=== PATIENT | male | born 1990 | race Hispanic/Latino ===

== ENCOUNTER 2019-07-06 13:38 | Emergency (ER) | payer SELFPAY ==
[2019-07-06] MEDS ORDERED: LIDOCAINE 1% MPF 5 ML VIAL ONE (14:16)
--- NOTE | 2019-07-06 15:11 | EDPHYS ---
Physician Documentation [facility] Name: Hector Tillman Age: 29 yrs Sex: Male : 1990 Arrival Date: 07/06/2019 Time: 13:41 Bed 28 Private MD: ED Physician Rosales Kiran HPI: 07/06 14:10 This 29 yrs old Male presents to ER via Ambulatory with complaints of Finger cp Problem. 14:10 The patient or guardian reports pain, swelling, tenderness. The complaints affect the cp distal phalanx right fourth finger. Context: resulted from an unknown cause. 14:10 Onset: The symptoms/episode began/occurred gradually, and became worse today. cp Associated signs and symptoms: Pertinent negatives: cyanosis distally, decreased sensation distally, fever. Historical: - Allergies: 14:42 No Known Allergies; rv - Home Meds: 14:42 None [Active]; rv - PMHx: 14:42 None; rv - PSHx: 14:42 None; rv - Immunization history:: Adult Immunizations up to date. - Social history:: Smoking status: Patient uses tobacco products, denies chronic smoking, but will smoke occasionally. - Ebola Screening: : Patient negative for fever greater than or equal to 101.5 degrees Fahrenheit, and additional compatible Ebola Virus Disease symptoms Patient denies exposure to infectious person Patient denies travel to an Ebola-affected area in the 21 days before illness onset. ROS: 14:15 Skin: Positive for abscess, of the distal phalanx right fourth finger. cp 14:15 Constitutional: Negative for body aches, chills, fever, poor PO intake. cp 14:15 All other systems are negative. Exam: 14:20 Constitutional: The patient appears in no acute distress, alert, awake, non-toxic, well cp developed, well nourished. 14:20 Head/Face: Normocephalic, atraumatic. cp 14:20 Skin: abscess, that is small, of the along the nail right fourth finger, with induration. 14:20 Neuro: Motor: is normal, Sensation: is normal. Vital Signs: 14:02 BP 143 / 97 LA Sitting (auto/lg); Pulse 93; Resp 18; Temp 98.2(O); Pulse Ox 99% on R/A; jp3 Weight 102.06 kg (R); Height 5 ft. 10 in. (177.80 cm) (R); Pain 9/10; 15:19 BP 138 / 88; Pulse 89; Resp 15; Temp 98; Pulse Ox 99% on R/A; rv 14:02 Body Mass Index 32.28 (102.06 kg, 177.80 cm) jp3 Procedures: 15:06 I \T\ D: Incision and drainage was performed for an abscess of the distal phalanx right cp fourth finger Prepped with Betadine, Anesthetized with digital block using 5 ccs of mixture 1% lidocaine w/o epi and 0.5% bupivacaine w/o epi. Incised with #11 blade. Drained small amount purulent fluid. Dressing: sterile 4x4 gauze, the patient tolerated the procedure well. MDM: 14:04 Patient medically screened. cp 14:15 Differential diagnosis: abscess, cellulitis. cp 15:08 Data reviewed: vital signs, nurses notes, and as a result, I will discharge patient. cp 15:10 Counseling: I had a detailed discussion with the patient and/or guardian regarding: the cp historical points, exam findings, and any diagnostic results supporting the discharge/admit diagnosis, to return to the emergency department if symptoms worsen or persist or if there are any questions or concerns that arise at home. 15:10 Response to treatment: the patient's symptoms have markedly improved after treatment, cp and as a result, I will discharge patient. 07/06 14:05 Order name: I\T\D Setup; Complete Time: 14:12 cp 07/06 15:04 Order name: Wound dressing; Complete Time: 15:06 cp Administered Medications: 15:00 Drug: Lidocaine (1 %) 5 mg {Note: given by Jose Alfredo Page.} Route: Infiltration; rv 15:19 Follow up: Response: No adverse reaction rv 15:00 Drug: Marcaine (0.5 %) 5 ml {Note: given by Jose Alfredo Page.} Volume: 10 ml; Route: rv Infiltration; 15:19 Follow up: Response: No adverse reaction rv Disposition: 15:30 Chart complete. cp 07/07 07:05 Co-signature as Attending Physician, Rosales Kiran MD I agree with the assessment and kdr plan of care. Disposition: 07/06/19 15:10 Discharged to Home. Impression: Cutaneous abscess of right upper limb - distal phalanx right fourth finger. - Condition is Stable. - Discharge Instructions: Incision and Drainage, Paronychia. - Prescriptions for Ibuprofen 800 mg Oral Tablet - take 1 tablet by ORAL route every 8 hours As needed take with food; 30 tablet. Doxycycline Hyclate 100 mg Oral Tablet - take 1 tablet by ORAL route every 12 hours; 20 tablet. - Medication Reconciliation Form, Thank You Letter, Antibiotic Education, Prescription Opioid Use form. - Follow up: Emergency Department; When: 2 - 3 days; Reason: Worsening of condition. - Problem is new. - Symptoms have improved. Signatures: Rosales Kiran MD MD kdr Jose Alfredo Newman PA PA cp Raz Logan RN RN rv Corrections: (The following items were deleted from the chart) 07/06 15:20 15:10 07/06/2019 15:10 Discharged to Home. Impression: Cutaneous abscess of right upper rv limb - distal phalanx right fourth finger. Condition is Stable. Forms are Medication Reconciliation Form, Thank You Letter, Antibiotic Education, Prescription Opioid Use. Follow up: Emergency Department; When: 2 - 3 days; Reason: Worsening of condition. Problem is new. Symptoms have improved. cp
--- NOTE | 2019-07-06 15:11 | ER ---
Nurse's Notes [facility] Name: Hector Tillman Age: 29 yrs Sex: Male : 1990 Arrival Date: 07/06/2019 Time: 13:41 Bed 28 Private MD: Diagnosis: Cutaneous abscess of right upper limb-distal phalanx right fourth finger Presentation: 07/06 14:40 Transition of care: patient was not received from another setting of care. Onset of rv symptoms was July 06, 2019 at 08:00. Risk Assessment: Do you want to hurt yourself or someone else? Patient reports no desire to harm self or others. Initial Sepsis Screen: Does the patient meet any 2 criteria? No. Patient's initial sepsis screen is negative. Does the patient have a suspected source of infection? No. Patient's initial sepsis screen is negative. Care prior to arrival: None. 14:40 Acuity: ABIMAEL 3 rv 14:40 Method Of Arrival: Ambulatory rv 15:05 Presenting complaint: Patient states: abscess right hand 4th digit. rv Historical: - Allergies: 14:42 No Known Allergies; rv - Home Meds: 14:42 None [Active]; rv - PMHx: 14:42 None; rv - PSHx: 14:42 None; rv - Immunization history:: Adult Immunizations up to date. - Social history:: Smoking status: Patient uses tobacco products, denies chronic smoking, but will smoke occasionally. - Ebola Screening: : Patient negative for fever greater than or equal to 101.5 degrees Fahrenheit, and additional compatible Ebola Virus Disease symptoms Patient denies exposure to infectious person Patient denies travel to an Ebola-affected area in the 21 days before illness onset. Screenin:40 Abuse screen: Denies threats or abuse. Denies injuries from another. Nutritional rv screening: No deficits noted. Tuberculosis screening: No symptoms or risk factors identified. Fall Risk None identified. Assessment: 14:39 General: Appears in no apparent distress. comfortable, Behavior is calm, cooperative. rv Pain: Complains of pain in right hand. Neuro: Level of Consciousness is awake, alert, obeys commands, Oriented to person, place, time, situation. Cardiovascular: Patient's skin is warm and dry. Respiratory: Airway is patent. GI: No signs and/or symptoms were reported involving the gastrointestinal system. : No signs and/or symptoms were reported regarding the genitourinary system. EENT: No signs and/or symptoms were reported regarding the EENT system. Derm: Abscess located on dorsal aspect of distal phalanx of right ring finger and dorsal aspect of middle phalanx of right ring finger. Musculoskeletal: No signs and/or symptoms reported regarding the musculoskeletal system. Vital Signs: 14:02 BP 143 / 97 LA Sitting (auto/lg); Pulse 93; Resp 18; Temp 98.2(O); Pulse Ox 99% on R/A; jp3 Weight 102.06 kg (R); Height 5 ft. 10 in. (177.80 cm) (R); Pain 9/10; 15:19 BP 138 / 88; Pulse 89; Resp 15; Temp 98; Pulse Ox 99% on R/A; rv 14:02 Body Mass Index 32.28 (102.06 kg, 177.80 cm) jp3 ED Course: 13:41 Patient arrived in ED. rg4 13:56 Jose Alfredo Newman PA is PHCP. cp 13:56 Rosales Kiran MD is Attending Physician. cp 14:03 Patient has correct armband on for positive identification. Bed in low position. Call jp3 light in reach. Verbal reassurance given. Pulse ox on. NIBP on. 14:03 Patient maintains SpO2 saturation greater than 95% on room air. jp3 14:12 Raz Logan, ADRIAN is Primary Nurse. rv 14:41 Triage completed. rv 14:42 Patient placed in the treatment room, on a stretcher, on pulse oximetry, Patient rv notified of wait time. 14:43 Assist provider with I \T\ D: of an abscess on right hand, 2nd digit Set up I\T\D tray. rv Performed by Jose Alfredo IRVING Dressing with 4X4s, Patient tolerated well. Assist provider with nerve block (digital) of dorsal aspect of proximal phalanx of right ring finger Set up for procedure. Performed by Jose Alfredo IRVING Patient tolerated well. 15:20 Patient did not have IV access during this emergency room visit. rv Administered Medications: 15:00 Drug: Lidocaine (1 %) 5 mg {Note: given by Jose Alfredo Newman.} Route: Infiltration; rv 15:19 Follow up: Response: No adverse reaction rv 15:00 Drug: Marcaine (0.5 %) 5 ml {Note: given by Jose Alfredo Newman.} Volume: 10 ml; Route: rv Infiltration; 15:19 Follow up: Response: No adverse reaction rv Outcome: 15:10 Discharge ordered by . cp 15:20 Discharged to home ambulatory. rv 15:20 Condition: good 15:20 Discharge instructions given to patient, Instructed on discharge instructions, follow up and referral plans. medication usage, wound care, Demonstrated understanding of instructions, follow-up care, medications, wound care, Prescriptions given X 2. 15:20 Patient left the ED. rv Signatures: Jose Alfredo Newman PA PA cp Garcia, Rubi rg4 Raz Logan RN RN rv Isidro García jp3 Corrections: (The following items were deleted from the chart) 15: 14:40 Presenting complaint: Patient states: abcess on right hand 2nd digit rv rv
[2019-07-06 15:28] VITALS: O2SAT 99
[2019-07-06 15:29] VITALS: BP 138/88; TEMP 98
== END 2019-07-06 15:20 | disposition home or self-care (01) ==
LOC: ER 13:38
PROC: 0H9FXZZ Drainage of Right Hand Skin, External Approach (ICD-10-PCS; principal; 2019-07-06)
DX: L02.511 Cutaneous abscess of right hand (principal); Z72.0 Tobacco use
CPT/HCPCS: 99284

== ENCOUNTER 2020-01-10 09:45 | Emergency (ER) | payer SELFPAY ==
[2020-01-10] MEDS ORDERED: TETRACAINE HCL 0.5% 4ML OPTH ONE (10:18)
[2020-01-10] MEDS ORDERED: FLUORESCEIN SODIUM 1 MG/WRAP ONE (10:18)
--- NOTE | 2020-01-10 10:29 | EDPHYS ---
Physician Documentation [facility] Name: Hector Tillman Age: 29 yrs Sex: Male : 1990 Arrival Date: 01/10/2020 Time: 09:49 Bed 23 Private MD: ED Physician Georgi Hess HPI: 01/09 10:40 This 29 yrs old Male presents to ER via Ambulatory with complaints of Redness snw of Eye. 10:40 The patient is experiencing redness, tearing, to the left eye, caused by an unknown snw mechanism. Onset: The symptoms/episode began/occurred suddenly, 2 day(s) ago. Duration: the symptoms are continuous. Associated signs and symptoms: Pertinent positives: None. Patient wears soft contacts. Severity of symptoms: At their worst the symptoms were moderate in the emergency department the symptoms are unchanged. It is unknown whether or not the patient has had similar symptoms in the past. It is unknown whether or not the patient has recently seen a physician. Historical: - Allergies: 10:03 No Known Allergies; ss - Home Meds: 10:03 None [Active]; ss - PMHx: 10:03 None; ss - PSHx: 10:03 None; ss - Immunization history:: Adult Immunizations up to date. - Social history:: Smoking status: Patient denies any tobacco usage or history of. ROS: 10:38 Constitutional: Negative for fever, chills, and weight loss, ENT: Negative for injury, snw pain, and discharge, Neck: Negative for injury, pain, and swelling, Cardiovascular: Negative for chest pain, palpitations, and edema, Respiratory: Negative for shortness of breath, cough, wheezing, and pleuritic chest pain, Abdomen/GI: Negative for abdominal pain, nausea, vomiting, diarrhea, and constipation, Back: Negative for injury and pain, : Negative for injury, bleeding, discharge, and swelling, MS/Extremity: Negative for injury and deformity, Skin: Negative for injury, rash, and discoloration, Neuro: Negative for headache, weakness, numbness, tingling, and seizure, Psych: Negative for depression, anxiety, suicide ideation, homicidal ideation, and hallucinations. 10:38 Eyes: Positive for redness, of the outer aspect of conjuctiva of left eye, iris of left eye and inner aspect of conjunctiva of left eye. Exam: 10:37 Constitutional: This is a well developed, well nourished patient who is awake, alert, snw and in no acute distress. Head/Face: Normocephalic, atraumatic. ENT: Nares patent. No nasal discharge, no septal abnormalities noted. Tympanic membranes are normal and external auditory canals are clear. Oropharynx with no redness, swelling, or masses, exudates, or evidence of obstruction, uvula midline. Mucous membranes moist. Neck: Trachea midline, no thyromegaly or masses palpated, and no cervical lymphadenopathy. Supple, full range of motion without nuchal rigidity, or vertebral point tenderness. No Meningismus. Chest/axilla: Normal chest wall appearance and motion. Nontender with no deformity. No lesions are appreciated. Cardiovascular: Regular rate and rhythm with a normal S1 and S2. No gallops, murmurs, or rubs. Normal PMI, no JVD. No pulse deficits. Respiratory: Lungs have equal breath sounds bilaterally, clear to auscultation and percussion. No rales, rhonchi or wheezes noted. No increased work of breathing, no retractions or nasal flaring. Abdomen/GI: Soft, non-tender, with normal bowel sounds. No distension or tympany. No guarding or rebound. No evidence of tenderness throughout. Back: No spinal tenderness. No costovertebral tenderness. Full range of motion. Skin: Warm, dry with normal turgor. Normal color with no rashes, no lesions, and no evidence of cellulitis. MS/ Extremity: Pulses equal, no cyanosis. Neurovascular intact. Full, normal range of motion. Neuro: Awake and alert, GCS 15, oriented to person, place, time, and situation. Cranial nerves II-XII grossly intact. Motor strength 5/5 in all extremities. Sensory grossly intact. Cerebellar exam normal. Normal gait. Psych: Awake, alert, with orientation to person, place and time. Behavior, mood, and affect are within normal limits. 10:37 Eyes: Periorbital structures: appear normal, Pupils: no acute changes, Extraocular movements: no acute changes, Conjunctiva: injected, in the left eye, Corneas: abrasion, that is small, on the left, over pupil, a fluorescein strip employed to appreciate the findings, Anterior chamber: normal, Lids and lashes: appear normal, on the right. Vital Signs: 10:01 BP 145 / 94; Pulse 98; Resp 16; Temp 97.6(TE); Pulse Ox 97% on R/A; Weight 102.06 kg; ss Height 5 ft. 8 in. (172.72 cm); Pain 7/10; 10:01 Body Mass Index 34.21 (102.06 kg, 172.72 cm) ss Visual Acuity: 10:49 Left Eye Visual acuity 20/30, ; Right Eye Visual acuity 20/10, ; Both Eyes Visual ss acuity 20/20; With Lenses; MDM: 10:10 Patient medically screened. snw 10:34 Data reviewed: vital signs, nurses notes. Data interpreted: Pulse oximetry: on room air snw is 97 %. Interpretation: normal. Counseling: I had a detailed discussion with the patient and/or guardian regarding: the historical points, exam findings, and any diagnostic results supporting the discharge/admit diagnosis, the presence of at least one elevated blood pressure reading (>120/80) during this emergency department visit, the need for outpatient follow up, for definitive care, to return to the emergency department if symptoms worsen or persist or if there are any questions or concerns that arise at home. 01/09 10:04 Order name: Eye Tray; Complete Time: 10:15 snw 01/09 10:04 Order name: Visual Acuity; Complete Time: 10:48 snw Administered Medications: 10:15 Drug: Fluorescein Strip 1 strip {Note: administered by Kristal Guillory NP.} Route: ss Ophthalmic; Site: left eye; 10:15 Drug: Tetracaine Drops 0.5 % 1 drops Route: Ophthalmic; Site: left eye; Disposition: 10:53 Co-signature as Attending Physician, Georgi Hess MD. rn Disposition: 01/10/20 10:26 Discharged to Home. Impression: Injury of conjunctiva and corneal abrasion without foreign body, left eye. - Condition is Stable. - Discharge Instructions: Corneal Abrasion, Bacterial Conjunctivitis, Hypertension, Form - Blood Pressure Record Sheet, Form - Return To Work. - Prescriptions for Vigamox 0.5 % Ophthalmic Drops - instill 1 drop by OPHTHALMIC route every 8 hours for 7 days; 5 milliliter. Diclofenac Sodium 75 mg Oral Tablet Sustained Release - take 1 tablet by ORAL route 2 times per day; 30 tablet. - Medication Reconciliation Form, Thank You Letter, Antibiotic Education, Prescription Opioid Use, Work release form, Family Work Release form. - Follow up: Emergency Department; When: As needed; Reason: Worsening of condition. Follow up: Private Physician; When: 2 - 3 days; Reason: Recheck today's complaints, Continuance of care, Re-evaluation by your physician. Signatures: Kristal Guillory, TAR POT MAN-C TAR POT MAN-Csnw Georgi Hess MD MD rn Smirch, Shelby, RN RN ss Corrections: (The following items were deleted from the chart) 10:52 10:26 01/10/2020 10:26 Discharged to Home. Impression: Injury of conjunctiva and ss corneal abrasion without foreign body, left eye. Condition is Stable. Forms are Medication Reconciliation Form, Thank You Letter, Antibiotic Education, Prescription Opioid Use. Follow up: Emergency Department; When: As needed; Reason: Worsening of condition. Follow up: Private Physician; When: 2 - 3 days; Reason: Recheck today's complaints, Continuance of care, Re-evaluation by your physician. snw
--- NOTE | 2020-01-10 10:29 | ER ---
Nurse's Notes [facility] Name: Hector Tillman Age: 29 yrs Sex: Male : 1990 Arrival Date: 01/10/2020 Time: 09:49 Bed 23 Private MD: Diagnosis: Injury of conjunctiva and corneal abrasion without foreign body, left eye Presentation: 01/09 10:01 Chief complaint: Patient states: redness to L eye x3 days. Denies purulent drainage. ss "feels as if something is in my eye.". Coronavirus screen: Patient denies fever greater than 100.4F, cough, shortness of breath, or difficulty breathing. Proceed with normal triage process. Ebola Screen: Patient denies exposure to infectious person. Patient denies travel to an Ebola-affected area in the 21 days before illness onset. Initial Sepsis Screen: Does the patient meet any 2 criteria? No. Patient's initial sepsis screen is negative. Does the patient have a suspected source of infection? No. Patient's initial sepsis screen is negative. Risk Assessment: Do you want to hurt yourself or someone else? Patient reports no desire to harm self or others. 10:01 Method Of Arrival: Ambulatory ss 10:01 Acuity: ABIMAEL 4 ss Historical: - Allergies: 10:03 No Known Allergies; ss - Home Meds: 10:03 None [Active]; ss - PMHx: 10:03 None; ss - PSHx: 10:03 None; ss - Immunization history:: Adult Immunizations up to date. - Social history:: Smoking status: Patient denies any tobacco usage or history of. Screenin:53 Abuse screen: Denies threats or abuse. Denies injuries from another. Nutritional ss screening: No deficits noted. Tuberculosis screening: Never had TB. Fall Risk None identified. Assessment: 09:53 General: Appears uncomfortable, Behavior is calm, cooperative, Denies fever, feeling ss ill, fatigue, chills. Pain: Complains of pain in inner aspect of conjunctiva of left eye and outer aspect of conjuctiva of left eye Pain currently is 5 out of 10 on a pain scale. Quality of pain is described as burning, tender, Pain began 2-3 days ago. Is continuous. Neuro: Level of Consciousness is awake, alert, obeys commands, Oriented to person, place, time, situation. Respiratory: Airway is patent Respiratory effort is even, unlabored. EENT: Throat is clear. Derm: Skin is pink, warm \\T\\ dry. normal. Musculoskeletal: Circulation, motion, and sensation intact. Range of motion: intact in all extremities, Swelling absent. Vital Signs: 10:01 BP 145 / 94; Pulse 98; Resp 16; Temp 97.6(TE); Pulse Ox 97% on R/A; Weight 102.06 kg; ss Height 5 ft. 8 in. (172.72 cm); Pain 7/10; 10:01 Body Mass Index 34.21 (102.06 kg, 172.72 cm) ss Visual Acuity: 10:49 Left Eye Visual acuity 20/30, ; Right Eye Visual acuity 20/10, ; Both Eyes Visual ss acuity 20/20; With Lenses; ED Course: 09:49 Patient arrived in ED. mr 09:53 Patient has correct armband on for positive identification. ss 10:01 Kristal Guillory FNP-C is [facility]. snw 10:01 Georgi Hess MD is Attending Physician. snw 10:01 Ángela Devine, ADRIAN is Primary Nurse. ss 10:03 Triage completed. ss 10:03 Arm band placed on right wrist. ss 10:51 No provider procedures requiring assistance completed. Patient did not have IV access ss during this emergency room visit. Administered Medications: 10:15 Drug: Fluorescein Strip 1 strip {Note: administered by Kristal Guillory NP.} Route: ss Ophthalmic; Site: left eye; 10:15 Drug: Tetracaine Drops 0.5 % 1 drops Route: Ophthalmic; Site: left eye; ss Outcome: 10:26 Discharge ordered by . snw 10:51 Discharged to home ambulatory. ss 10:51 Condition: good 10:51 Discharge instructions given to patient, Instructed on discharge instructions, follow up and referral plans. medication usage, Demonstrated understanding of instructions, follow-up care, medications, Prescriptions given X 2. 10:52 Patient left the ED. ss Signatures: Kristal Guillory FNP-C FNP-Csnw Fany Evans mr Ángela Devine, RN RN ss
[2020-01-10 11:01] VITALS: BP 145/94; TEMP 97.6; O2SAT 97
== END 2020-01-10 10:52 | disposition home or self-care (01) ==
LOC: ER 09:45
DX: S05.02XA Injury of conjunctiva and corneal abrasion without foreign body, left eye, initial encounter (principal)
CPT/HCPCS: 99283

== ENCOUNTER 2020-02-29 13:18 | Emergency (ER) | payer SELFPAY ==
--- NOTE | 2020-02-29 13:54 | ER ---
Nurse's Notes [facility] Name: Hector Tillman Age: 29 yrs Sex: Male : 1990 Arrival Date: 02/29/2020 Time: 13:22 Bed 18 Private MD: Diagnosis: Unspecified abdominal pain Presentation: 02/28 13:26 Chief complaint: Patient states: Pt reports abd discomfort and diarrhea that started ss yesterday. Pt reports he feels better today and needs to be cleared to go back to work tomorrow. Coronavirus screen: Proceed with normal triage. Patient denies a cough. Patient denies shortness of breath or difficulty breathing. Patient denies measured and/or subjective temperature greater than 100.4F prior to today's visit. Patient denies travel on a cruise ship or to a country the [facility] currently lists as an affected area. Patient denies contact with known and/or suspected case of COVID-19. Ebola Screen: Patient denies exposure to infectious person. Patient denies travel to an Ebola-affected area in the 21 days before illness onset. Initial Sepsis Screen: Does the patient meet any 2 criteria? No. Patient's initial sepsis screen is negative. Does the patient have a suspected source of infection? No. Patient's initial sepsis screen is negative. Risk Assessment: Do you want to hurt yourself or someone else? Patient reports no desire to harm self or others. Onset of symptoms was February 28, 2020. 13:26 Method Of Arrival: Ambulatory ss 13:26 Acuity: ABIMAEL 4 ss Historical: - Allergies: 13:29 No Known Allergies; ss - Home Meds: 13:29 None [Active]; ss - PMHx: 13:29 None; ss - PSHx: 13:29 None; ss - Immunization history:: Adult Immunizations up to date. - Social history:: Smoking status: Patient/guardian denies using tobacco, but has a distant history of tobacco abuse, Patient/guardian denies using alcohol, street drugs, The patient lives with family. - Family history:: not pertinent. Screenin:08 Abuse screen: Denies threats or abuse. Nutritional screening: No deficits noted. Tuberculosis screening: No symptoms or risk factors identified. Fall Risk None identified. Assessment: 13:55 General: Appears in no apparent distress. Behavior is calm, cooperative. Pain: Complains of pain in abdomen. Neuro: Level of Consciousness is awake, alert, Oriented to person, place, time, situation. Cardiovascular: Heart tones S1 S2 present Capillary refill < 3 seconds Patient's skin is warm and dry. Respiratory: Airway is patent Respiratory effort is even, unlabored, Respiratory pattern is regular, symmetrical. GI: Bowel sounds present X 4 quads. Abd is soft and non tender Reports diarrhea, nausea. : No signs and/or symptoms were reported regarding the genitourinary system. EENT: No signs and/or symptoms were reported regarding the EENT system. Derm: No signs and/or symptoms reported regarding the dermatologic system. Vital Signs: 13:26 BP 127 / 61; Pulse 98; Resp 15; Temp 98.7(TE); Pulse Ox 98% on R/A; Weight 97.52 kg; ss Height 5 ft. 10 in. (177.80 cm); Pain 0/10; 13:26 Body Mass Index 30.85 (97.52 kg, 177.80 cm) ED Course: 13:22 Patient arrived in ED. mr 13:28 Triage completed. 13:29 Arm band placed on right wrist. 13:38 Zhanna Johnson MD is Attending Physician. [facility] 13:57 Glenny Zepeda, RN is Primary Nurse. 14:09 No provider procedures requiring assistance completed. Patient did not have IV access during this emergency room visit. 14:10 Patient has correct armband on for positive identification. Bed in low position. Call light in reach. Administered Medications: No medications were administered Outcome: 13:54 Discharge ordered by . [facility] 14:09 Discharged to home ambulatory. 14:09 Condition: good 14:09 Discharge instructions given to patient, Instructed on discharge instructions, follow up and referral plans. medication usage, Demonstrated understanding of instructions, follow-up care, medications, Prescriptions given X 2. 14:10 Patient left the ED. Signatures: Fany Evans NilsonÁngela RN RN Zhanna Johnson MD MD ma2 Harris, Amy RN RN Corrections: (The following items were deleted from the chart) 13:30 13:26 Acuity: ABIMAEL 3 [facility]
--- NOTE | 2020-02-29 13:54 | EDPHYS ---
Physician Documentation [facility] Name: Hector Tillman Age: 29 yrs Sex: Male : 1990 Arrival Date: 02/29/2020 Time: 13:22 Bed 18 Private MD: ED Physician Zhanna Johnson HPI: 02/28 13:52 This 29 yrs old Male presents to ER via Ambulatory with complaints of ma2 Abdominal Pain, Diarrhea, needs work excuse. 13:52 The patient presents to the emergency department with diarrhea. Onset: The ma2 symptoms/episode began/occurred gradually, 2 day(s) ago. Associated signs and symptoms: Pertinent negatives: constipation, dysuria, GI bleeding, hematuria. Severity of symptoms: At their worst the symptoms were moderate in the emergency department the symptoms are unchanged. The patient has not experienced similar symptoms in the past. Historical: - Allergies: 13:29 No Known Allergies; ss - Home Meds: 13:29 None [Active]; ss - PMHx: 13:29 None; ss - PSHx: 13:29 None; ss - Immunization history:: Adult Immunizations up to date. - Social history:: Smoking status: Patient/guardian denies using tobacco, but has a distant history of tobacco abuse, Patient/guardian denies using alcohol, street drugs, The patient lives with family. - Family history:: not pertinent. ROS: 13:52 Constitutional: Negative for fever, chills, and weight loss. ma2 13:52 All other systems are negative. Exam: 13:52 Constitutional: This is a well developed, well nourished patient who is awake, alert, ma2 and in no acute distress. Chest/axilla: Normal chest wall appearance and motion. Nontender with no deformity. No lesions are appreciated. Cardiovascular: Regular rate and rhythm with a normal S1 and S2. No gallops, murmurs, or rubs. Normal PMI, no JVD. No pulse deficits. Respiratory: Lungs have equal breath sounds bilaterally, clear to auscultation and percussion. No rales, rhonchi or wheezes noted. No increased work of breathing, no retractions or nasal flaring. Abdomen/GI: Soft, non-tender, with normal bowel sounds. No distension or tympany. No guarding or rebound. No evidence of tenderness throughout. Skin: Warm, dry with normal turgor. Normal color with no rashes, no lesions, and no evidence of cellulitis. MS/ Extremity: Pulses equal, no cyanosis. Neurovascular intact. Full, normal range of motion. Neuro: Awake and alert, GCS 15, oriented to person, place, time, and situation. Cranial nerves II-XII grossly intact. Motor strength 5/5 in all extremities. Sensory grossly intact. Cerebellar exam normal. Normal gait. Vital Signs: 13:26 BP 127 / 61; Pulse 98; Resp 15; Temp 98.7(TE); Pulse Ox 98% on R/A; Weight 97.52 kg; ss Height 5 ft. 10 in. (177.80 cm); Pain 0/10; 13:26 Body Mass Index 30.85 (97.52 kg, 177.80 cm) ss MDM: 13:44 Patient medically screened. ma2 13:52 Differential diagnosis: Nonspecific abd pain, gastritis, viral gastroenteritis, ma2 gastroenteritis. Data reviewed: vital signs, nurses notes. Counseling: I had a detailed discussion with the patient and/or guardian regarding: the historical points, exam findings, and any diagnostic results supporting the discharge/admit diagnosis, the presence of at least one elevated blood pressure reading (>120/80) during this emergency department visit, the need for outpatient follow up. Response to treatment: the patient's symptoms have markedly improved after treatment. Administered Medications: No medications were administered Disposition: 02/29/20 13:54 Discharged to Home. Impression: Unspecified abdominal pain. - Condition is Stable. - Discharge Instructions: Abdominal Pain, Adult, Form - Excuse from Work, School, or Physical Activity. - Prescriptions for Zofran 4 mg Oral Tablet - take 1 tablet by ORAL route every 12 hours As needed; 20 tablet. Pepcid 20 mg Oral Tablet - take 1 tablet by ORAL route once daily for 10 days; 10 tablet. - Medication Reconciliation Form, Thank You Letter, Antibiotic Education, Prescription Opioid Use, Work release form form. - Follow up: Private Physician; When: Tomorrow; Reason: Continuance of care. Signatures: Ángela Devine RN RN Zhanna Johnson MD MD ma2 Glenny Zepeda RN ADRIAN Corrections: (The following items were deleted from the chart) 14:10 13:54 02/29/2020 13:54 Discharged to Home. Impression: Unspecified abdominal pain. ah Condition is Stable. Forms are Medication Reconciliation Form, Thank You Letter, Antibiotic Education, Prescription Opioid Use. Follow up: Private Physician; When: Tomorrow; Reason: Continuance of care. ma2
[2020-02-29 14:16] VITALS: BP 127/61; TEMP 98.7; O2SAT 98
== END 2020-02-29 14:10 | disposition home or self-care (01) ==
LOC: ER 13:18
DX: R10.9 Unspecified abdominal pain (principal); R19.7 Diarrhea, unspecified
CPT/HCPCS: 99282